=== PATIENT | female | born 1990 | race Caucasian/White ===

== ENCOUNTER 2021-05-10 18:22 | Emergency (ER) | payer OTHER ==
[~2021-05-10 18:22] MED LIST: AUGMENTIN 875-1 EACH PO; BACTRIM DS TAB1 EACH PO; COLACE100 MG PO; FEOSOL325 MG PO; GLUCOSE4 GM PO; IBUPROFEN800 MG PO; KEFLEX250 MG PO; LABETALOL HCL200 MG PO; LEVEMIR100 UNIT/1 SC; MOTRIN600 MG PO; NAPROXEN500 MG PO; NORCO 5-325 TA1 EACH PO; NOVOLOG VI100 UNIT/1 SC; PERCOCET 5-3251 EACH PO; PRENATAL FORMU1 EACH PO; TRANDATE100 MG PO; pre natal vit
== END 2021-05-10 20:35 | disposition home or self-care (01) ==
LOC: FER 18:22
DX: S00.83XA Contusion of other part of head, initial encounter (principal); S20.213A Contusion of bilateral front wall of thorax, initial encounter; S09.90XA Unspecified injury of head, initial encounter; I10 Essential (primary) hypertension; F17.210 Nicotine dependence, cigarettes, uncomplicated; Y04.0XXA Assault by unarmed brawl or fight, initial encounter; Y92.512 Supermarket, store or market as the place of occurrence of the external cause
CPT/HCPCS: 70450; 70486; 71111; 72125

== ENCOUNTER 2021-05-18 13:09 | Emergency (ER) | payer OTHER ==
[2021-05-18 14:22] LABS: BASOPHIL 0.5 % (0-2); HCT 46.9 % (37.0-47.0); HGB 15.6 g/dl (12.5-16.0); LYMPHOCYTE 11.6 % (15-48); MCH 30.9 pg (25.0-31.0); MCHC 33.3 g/dL (32.0-36.0); MCV 92.9 fL (78.0-100.0); MONOCYTE 7.4 % (0-12); MPV 10.6 fL (6.0-9.5); NRBC 0; PLT 185 K/uL (150-400); RBC 5.05 M/uL (4.20-5.40); RDW 14.5 % (11.5-14.0); WBC 15.5 K/uL (4.0-10.5)
[2021-05-18 14:23] LABS: BILIRUBIN NEGATIVE (NEGATIVE); BLOOD 1+ Ery/uL (NEGATIVE); CLARITY CLEAR (CLEAR); COLOR YELLOW (YELLOW); GLUCOSE (U) NORMAL (NORMAL); LEUKOCYTES 1+ Leu/uL (NEGATIVE); NITRITE POSITIVE (NEGATIVE); PROTEIN TRACE (LOW) mg/dL (NEGATIVE); SPECIFIC GRAVITY 1.015 (1.001-1.030); UROBILINOGEN 0.2 mg/dL (0.2-1.0)
[2021-05-18 14:32] LABS: ALBUMIN 3.5 g/dL (3.4-5.0); BILIRUBIN - TOTAL 0.7 mg/dL (0.2-1.0); BUN/CREAT RATIO (CALC) 13.7 RATIO; CREATININE 0.73 mg/dL (0.51-0.95); GLOBULIN (CALCULATION) 3.8 g/dL; TOTAL PROTEIN 7.3 g/dL (6.4-8.2)
[2021-05-18 14:36] LABS: BACTERIA 4+
== END 2021-05-18 19:40 | disposition other institution (70) ==
LOC: FER 13:09
PROVIDERS: Physician Assistant
DX: N13.2 Hydronephrosis with renal and ureteral calculous obstruction (principal); N39.0 Urinary tract infection, site not specified; D72.829 Elevated white blood cell count, unspecified; I10 Essential (primary) hypertension; E11.9 Type 2 diabetes mellitus without complications; F17.210 Nicotine dependence, cigarettes, uncomplicated
CPT/HCPCS: 36415; 80053; 81001; 85025; 87076; 87088; 87186; J0696; J1885; J2405; J7030

== ENCOUNTER 2021-07-16 17:02 | Emergency (ER) | payer OTHER ==
[2021-07-16] MEDS ORDERED: BACTRIM DS TAB1 EACH PO (22:28)
[2021-07-16] MEDS ORDERED: ZOFRAN4 M1 PO (22:28)
[2021-07-16] MEDS ORDERED: NORCO 5-325 TA1 EACH PO (22:28)
== END 2021-07-16 23:00 | disposition home or self-care (01) ==
LOC: FER 17:02
DX: Z53.21 Procedure and treatment not carried out due to patient leaving prior to being seen by health care provider (principal)

== ENCOUNTER 2021-10-29 01:14 | Emergency (ER) | payer OTHER ==
[~2021-10-29 01:14] MED LIST changes: +ZOFRAN4 M1 PO
[2021-10-29 02:09] LABS: INFLUENZA A NAA NEGATIVE (NEGATIVE)
[2021-10-29 02:11] LABS: CORONAVIRUS 2019 SARS-COV-2 POSITIVE (NEGATIVE)
[2021-10-29 02:19] LABS: BASOPHIL 0.5 % (0-2); EOSINOPHIL 3.1 % (0-5); HCT 36.5 % (37.0-47.0); HGB 12.2 g/dl (12.5-16.0); LYMPHOCYTE 5.8 % (15-48); MCH 31.6 pg (25.0-31.0); MCHC 33.4 g/dL (32.0-36.0); MCV 94.6 fL (78.0-100.0); MONOCYTE 5.2 % (0-12); MPV 10.2 fL (6.0-9.5); NEUTROPHIL 83.4 % (41-80); NRBC 0; PLT 157 K/uL (150-400); RBC 3.86 M/uL (4.20-5.40); RDW 14.2 % (11.5-14.0); WBC 10.7 K/uL (4.0-10.5)
[2021-10-29 02:20] LABS: BILIRUBIN NEGATIVE (NEGATIVE); BLOOD NEGATIVE Ery/uL (NEGATIVE); CLARITY CLEAR (CLEAR); COLOR YELLOW (YELLOW); GLUCOSE (U) NORMAL (NORMAL); LEUKOCYTES NEGATIVE Leu/uL (NEGATIVE); NITRITE NEGATIVE (NEGATIVE); PROTEIN NEGATIVE (NEGATIVE); UROBILINOGEN 0.2 mg/dL (0.2-1.0)
[2021-10-29 02:39] LABS: ALBUMIN 2.8 g/dL (3.4-5.0); BILIRUBIN - TOTAL 0.1 mg/dL (0.2-1.0); BUN/CREAT RATIO (CALC) 13.2 RATIO; CREATININE 0.53 mg/dL (0.51-0.95); GLOBULIN (CALCULATION) 3.9 g/dL; POTASSIUM 3.6 mmol/L (3.5-5.1); TOTAL PROTEIN 6.7 g/dL (6.4-8.2)
[2021-10-29] MEDS ORDERED: FLAGYL500 MG PO (06:56)
[2021-10-30 22:06] LABS: CHLAMYDIA TRACHOMATIS, NAA Negative (Negative); NEISSERIA GONORRHOEAE, NAA Negative (Negative)
== END 2021-10-29 05:51 | disposition home or self-care (01) ==
LOC: FER 01:14
PROVIDERS: Emergency Medicine
DX: O98.512 Other viral diseases complicating pregnancy, second trimester (principal); O10.912 Unspecified pre-existing hypertension complicating pregnancy, second trimester; O99.332 Smoking (tobacco) complicating pregnancy, second trimester; U07.1 COVID-19; F17.200 Nicotine dependence, unspecified, uncomplicated; Z79.82 Long term (current) use of aspirin; Z79.899 Other long term (current) drug therapy; Z3A.00 Weeks of gestation of pregnancy not specified
CPT/HCPCS: 36415; 80053; 81003; 85025; 87210; 87491; 87591; J2405; J7030; U0002